=== PATIENT | male | born 1950 | race Caucasian/White ===

== ENCOUNTER → 2023-07-28 | Outpatient (CLI) | payer MEDICARE, OTHER ==
--- NOTE | 2023-07-28 12:25 | MR ---
EXAMINATION TYPE: MR Prostate wo/w con DATE OF EXAM: 07/28/2023 8:57 AM COMPARISON: None. CLINICAL INDICATION:Male, 72 years old with history of R97.20 ELEVATED PROSTATE SPECIFIC ANTIGEN [PSA ]; TECHNIQUE: Multi-planar, multi-sequence imaging of the pelvis is performed prior to and following the uncomplicated administration of bolus intravenous gadolinium. CONTRAST: 7.5 cc Gadavist. Interpretive Criteria: PI-RADS v2.1 SERUM PSA: 8.58 on 06/28/2023. 7.50 on 03/08/2023.. SURGICAL PATHOLOGY: No data available. FINDINGS: Prostatic dimensions: 5.1 x 3.8 x 3.3 cm. "Bullet" Volume:41.86 (PSA density=0.20 ng/mL/mL) CENTRAL GLAND (Central and Transition Zones/CZ+TZ): Multiple bilateral, heterogenous appearing hypertrophic stromal nodules, without suspicious lesion. (PI-RADS 2) PERIPHERAL ZONE (PZ): No evidence of masslike abnormality, or localized perfusional hypervascularity, to further suggest a focus of clinically significant prostate cancer. (PI-RADS 2) SEMINAL VESICLES (SV): Symmetric and unremarkable. PERIPROSTATIC TISSUES: Unremarkable. LYMPH NODES: No enlarged pelvic lymph node. REMAINING PELVIS: Trabeculated bladder wall likely secondary to chronic bladder outlet obstruction. Few scattered blad liang diverticula are present. No abnormal free or organized intrapelvic fluid collection. No pathologic bowel dilation or mural thickening. Left fat-containing inguinal hernia right bowel containing inguinal hernia. No evidence for bowel obs truction. OSSEOUS STRUCTURES: No suspicious osseous abnormality. IMPRESSION: 1. No specific features for high-risk prostate cancer. Maximum PI-RADS score: 2. 2. 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 No suspicious osseous lesion. No lymphadenopathy. No evidence of prostate adenocarcinoma involving the periprostatic tissues. 4. Bilateral inguinal hernias containing loops of bowel in the right without evidence of obstruction or circulation. The left is fat-containing.
== END | disposition home or self-care (01) ==
LOC: RADMRIMAIN 07:59
PROVIDERS: ATTEND Urology
DX: K40.20 Bilateral inguinal hernia, without obstruction or gangrene, not specified as recurrent (principal); N32.3 Diverticulum of bladder; N32.89 Other specified disorders of bladder; N40.0 Benign prostatic hyperplasia without lower urinary tract symptoms; R97.20 Elevated prostate specific antigen [PSA]
CPT/HCPCS: 72197; A9585